=== PATIENT | female | born 1935 | race Asian ===

== ENCOUNTER 2018-02-13 14:42 | Emergency (ER) | payer SELFPAY, MEDICARE, OTHER | END 2018-02-13 15:36 | disposition left against medical advice (07) | LOC: FTE 14:42 | DX: Z53.21 Procedure and treatment not carried out due to patient leaving prior to being seen by health care provider (principal) ==

== ENCOUNTER 2018-02-14 11:12 | Observation (INO) | payer MEDICARE, OTHER ==
[2018-02-14] MEDS: TRANEXAMIC ACID 1,000 MG in NS 100 ML INTRA-OP X1 IVPB (06:00)
[2018-02-14] MEDS: TRANEXAMIC ACID 1,000 MG in NS 100 ML PRE-OP X1 IVPB (06:00)
[2018-02-14] MEDS: VANCOMYCIN 1 GM (PMX) 250 ML IVPB ×2 (06:00→18:09)
[~2018-02-14 11:12] MED LIST: ACETAMINOPHEN 500 MG TAB PO; CEFAZOLIN 1 GM/50 ML (PMX) 50 ML IVPB; DEXAMETHASONE 4 MG/ML 1 ML INJ IV; HIP PAIN COCKTAIL (CEFUROXIME) INJ; LACTATED RINGER'S 1,000 ML IV*; LANSOPRAZOLE 30 MG CAP PO; ONDANSETRON 4 MG INJ IV; SEVOFLURANE 15 MIN; TRANEXAMIC ACID 1,000 MG in NS 100 ML INTRA-OP X1 IVPB; TRANEXAMIC ACID 1,000 MG in NS 100 ML PRE-OP X1 IVPB; oxyCODONE (CR) 10 MG TAB [oxyCONTIN] PO
[2018-02-14] MEDS ORDERED: POLYMYXIN B 500000 UNIT INJ (11:56)
[2018-02-14] MEDS: oxyCODONE (CR) 10 MG TAB [oxyCONTIN] PO (12:00)
[2018-02-14] MEDS ORDERED: SENNA/DOCUSATE NA (8.6MG/50MG) TAB PO (12:00)
[2018-02-14] MEDS ORDERED: BETHANECHOL 25 MG TAB PO (12:00)
[2018-02-14] MEDS ORDERED: NA PHOSPHATE/BIPHOS 133 ML ENEMA PR (12:00)
[2018-02-14] MEDS ORDERED: NALOXONE (0.4 MG/ML) INJ IV (12:00)
[2018-02-14] MEDS ORDERED: NACL 0.9% 3 ML SYG IV (12:00)
[2018-02-14] MEDS ORDERED: MAGNESIUM HYDROXIDE 30ML CUP PO (12:00)
[2018-02-14] MEDS: LANSOPRAZOLE 30 MG CAP PO (12:00)
[2018-02-14] MEDS ORDERED: BISACODYL 10 MG SUPP PR (12:00)
[2018-02-14] MEDS: LACTATED RINGER'S 1,000 ML IV* (12:00)
[2018-02-14] MEDS ORDERED: DIPHENHYDRAMINE 50 MG INJ IV ×2 (12:00→15:00)
[2018-02-14] MEDS: ACETAMINOPHEN 500 MG TAB PO (12:01)
[2018-02-14] MEDS: ONDANSETRON 4 MG INJ IV (12:01)
[2018-02-14] MEDS: DEXAMETHASONE 4 MG/ML 1 ML INJ IV (12:01)
[2018-02-14] MEDS ORDERED: morphine SULFATE/PF (10 MG/10 ML) INJ (12:17)
[2018-02-14] MEDS ORDERED: MIDAZOLAM 1 MG/ML 2 ML INJ (12:17)
[2018-02-14] MEDS ORDERED: FENTAnyl 50 MCG/ML VIAL (12:18)
[2018-02-14] MEDS ORDERED: BACITRACIN 50000 UNITS INJ (12:24)
[2018-02-14] MEDS: HIP PAIN COCKTAIL VANCO INJ (12:27)
[2018-02-14] MEDS ORDERED: VANCOMYCIN 1 GM (PMX) 250 ML (12:52)
[2018-02-14] MEDS ORDERED: ETOMIDATE 20 MG INJ (14:28)
[2018-02-14] MEDS ORDERED: CEFAZOLIN 1 GM INJ (14:28)
[2018-02-14] MEDS ORDERED: ONDANSETRON 4 MG INJ (14:28)
[2018-02-14] MEDS ORDERED: LIDOCAINE 2% (SDV) 5 ML INJ (14:28)
[2018-02-14] MEDS ORDERED: METOCLOPRAMIDE 10 MG INJ IV (15:00)
[2018-02-14] MEDS ORDERED: HYDROmorphONE 1 MG/5 ML IV SYRINGE IV ×2 (15:00)
[2018-02-14] MEDS ORDERED: ONDANSETRON 4 MG INJ IV (15:00)
[2018-02-14] MEDS ORDERED: hydrALAzine 20 MG INJ IV (15:00)
[2018-02-14] MEDS ORDERED: MEPERIDINE 25 MG INJ IV (15:00)
[2018-02-14] MEDS ORDERED: FENTAnyl 50 MCG/ML VIAL IV (15:00)
[2018-02-14] MEDS ORDERED: LABETALOL HCL 20MG INJ IV (15:00)
[2018-02-14] MEDS: DOCUSATE SODIUM 100 MG CAP PO (15:16)
[2018-02-14] MEDS: ASPIRIN 81 MG TAB PO (15:16)
[2018-02-14] MEDS: SOD CHLORIDE 0.9% 1,000 ML IV (16:57)
[2018-02-14] MEDS: oxyCODONE 5 MG TAB PO (20:37)
[2018-02-14] MEDS: GABAPENTIN 100 MG CAP PO (20:37)
[2018-02-15] MEDS: SOD CHLORIDE 0.9% 1,000 ML IV (00:12)
[2018-02-15 04:57] LABS: ADD MAN DIFF? NO
[2018-02-15 05:06] LABS: BASOPHILS % 0.2 % (0.0-2.0); HEMATOCRIT 26.5 % (37.0-47.0); HEMOGLOBIN 8.7 g/dl (12.0-16.0); LYMPHOCYTES % 10.1 % (15.0-51.0); MEAN CORPUSCULAR HEMOGLOBIN 27.6 pg (29.0-33.0); MEAN CORPUSCULAR HGB CONC 32.8 g/dl (32.0-37.0); MEAN CORPUSCULAR VOLUME 84.1 fl (82.0-101.0); MEAN PLATELET VOLUME 9.8 fl (7.4-10.4); MONOCYTES % 9.9 % (0.0-11.0); NEUTROPHIL # 7.8 10^3/ul (1.6-7.5); NEUTROPHILS % 79.2 % (39.0-77.0); PLATELET COUNT 217 10^3/UL (140-415); RED BLOOD COUNT 3.15 10^6/ul (4.20-5.40)
[2018-02-15 05:06] LABS: WHITE BLOOD COUNT 9.9 10^3/ul (4.8-10.8)
[2018-02-15 05:35] LABS: ANION GAP 10 (5-13); BLOOD UREA NITROGEN 18 mg/dl (7-20); CARBON DIOXIDE 23 mmol/L (21-31); CHLORIDE 109 mmol/L (97-110); CREATININE 0.68 mg/dl (0.44-1.00); GLUCOSE 126 mg/dl (70-220); POTASSIUM 4.4 mmol/L (3.5-5.1); SODIUM 142 mmol/L (135-144)
[2018-02-15] MEDS: oxyCODONE 5 MG TAB PO ×3 (06:19→15:31)
[2018-02-15] MEDS: GABAPENTIN 100 MG CAP PO (09:48)
[2018-02-15] MEDS: DOCUSATE SODIUM 100 MG CAP PO (09:49)
[2018-02-15] MEDS: CALCIUM/VITAMIN D (500/200) TAB PO (09:49)
[2018-02-15] MEDS: CELECOXIB 100 MG CAP PO (09:49)
[2018-02-15] MEDS: ASPIRIN (EC) 81 MG TAB PO (09:49)
[2018-02-15] MEDS: ONDANSETRON 4 MG INJ IV (14:07)
[2018-02-15] MEDS ORDERED: ATORVASTATIN 10 MG TAB PO (21:00)
[2018-02-16] MEDS ORDERED: PANTOPRAZOLE (EC) 40 MG TAB PO (06:00)
== END 2018-02-15 17:45 | disposition home health service (06) ==
LOC: REC 11:12 → MS1 16:14
PROVIDERS: Orthopaedic Surgery Adult Reconstructive Orthopaedic Surgery
DX: M17.11 Unilateral primary osteoarthritis, right knee (principal); E11.9 Type 2 diabetes mellitus without complications; I10 Essential (primary) hypertension; M11.20 Other chondrocalcinosis, unspecified site; K29.70 Gastritis, unspecified, without bleeding
CPT/HCPCS: 27447; 73560; 80048; 82962; 85025; 88304; 88311; 97116; 97161; 97167; 97530; 99217